=== PATIENT | female | born 1990 | race Hispanic/Latino ===

== ENCOUNTER 2017-06-10 12:38 | Emergency (ER) | payer OTHER ==
[2017-06-10 12:50] VITALS: BMI 43.2
[2017-06-10] MEDS ORDERED: Morphine 4 mg/ml ISec IVP STA (13:05)
[2017-06-10] MEDS ORDERED: Sodium Chloride 0.9% 1,000 ML IV STA (13:05)
[2017-06-10 13:26] LABS: BASO # 0.01 K/mm3 (0.0-2.0); BASO % 0.1 % (0.0-3.0); EOS # 0.4 (0.0-0.7); EOS % 2.7 % (1.5-5.0); GRAN # 12.08 (1.4-6.5); GRAN % 86.6 % (50.0-68.0); HEMOGLOBIN 14.3 g/dL (12.0-16.0); LYMPH # 0.6 (1.2-3.4); LYMPH % 4.4 % (22.0-35.0); MEAN CELL VOLUME 84.7 fl (80.0-105.0); MEAN CORPUSCULAR HGB CONC 33.1 g/dl (31.0-37.0); MEAN PLATELET VOLUME 10.5 fl (7.0-11.0); MONO # 0.9 (0.1-0.6); MONO % 6.2 % (1.0-6.0); PH,URINE 8.5 (4.7-8.0); PLATELET COUNT 242 10^3/uL (120.0-450.0); RED CELL DISTRIBUTION WIDTH 13.8 % (11.5-14.5); URINE BILIRUBIN NEGATIVE (NEGATIVE); URINE BLOOD SMALL (NEGATIVE); URINE GLUCOSE (UA) NEGATIVE (NEGATIVE); URINE LEUKOCYTE ESTERASE NEGATIVE Leu/uL (NEGATIVE); URINE NITRATE NEGATIVE (NEGATIVE); URINE PROTEIN 30 mg/dL (<30 mg/dL); URINE UROBILINOGEN 0.2 E.U./dL (<1 E.U./dL); WHITE BLOOD COUNT 13.9 10^3/ul (4.5-11.0)
[2017-06-10 13:29] LABS: URINE APPEARANCE CLEAR (CLEAR); URINE COLOR YELLOW (YELLOW)
[2017-06-10 13:36] LABS: ALB/GLOB RATIO 1.3 (1.1-1.8); ALBUMIN 4.5 g/dL (3.0-4.8); ALT/SGPT 41 U/L (7-56); AST/SGOT 27 U/L (14-36); BLOOD UREA NITROGEN 19 mg/dL (7-21); CALCIUM 9.9 mg/dL (8.4-10.5); GFR AFRICAN-AMERICAN > 60; GFR NON-AFRICAN AMERICAN > 60; LIPASE 90 U/L (23-300)
[2017-06-10 13:38] VITALS: RESP 18; TEMP 98.2
[2017-06-10] MEDS ORDERED: Iohexol 350 MG/100 ML VIAL ONE (13:42)
[2017-06-10 14:01] LABS: URINE BACTERIA FEW (NEG); URINE RBC 0 - 2 /hpf (0-2); URINE WBC 0 - 2 /hpf (0-6)
--- NOTE | 2017-06-10 14:47 | CT ---
PROCEDURE: CT Abdomen and Pelvis with contrast HISTORY: abd pain COMPARISON: None. TECHNIQUE: Contrast dose: 100 mL Omnipaque 350 Radiation dose: Total exam DLP = 1033.3 mGy-cm. This CT exam was performed using one or more of the following dose reduction techniques: Automated exposure control, adjustment of the mA and/or kV according to patient size, and/or use of iterative reconstruction technique. FINDINGS: LOWER THORAX: Unremarkable. LIVER: Unremarkable. No gross lesion or ductal dilatation. GALLBLADDER AND BILE DUCTS: Minimal cholelithiasis without gallbladder wall thickening or pericholecystic fluid. PANCREAS: Unremarkable. No gross lesion or ductal dilatation. SPLEEN: Unremarkable. ADRENALS: Unremarkable. No mass. KIDNEYS AND URETERS: Unremarkable. No hydronephrosis. No solid mass. VASCULATURE: Unremarkable. No aortic aneurysm. BOWEL: Unremarkable. No obstruction. No gross mural thickening. APPENDIX: Normal appendix. PERITONEUM: Small fat containing umbilical hernia. No free fluid. No free air. LYMPH NODES: Unremarkable. No enlarged lymph nodes. BLADDER: Unremarkable. REPRODUCTIVE: Malpositioned intrauterine device in the lower uterine segment/cervix. BONES: No acute fracture. OTHER FINDINGS: None. IMPRESSION: Malpositioned intrauterine device in the lower uterine segment/cervix. Minimal cholelithiasis without CT evidence of acute cholecystitis. Findings conveyed to Dr. Cross by Dr. Miranda at 2:44 pm on 06/10/2017.
[2017-06-10 15:28] LABS: EOSINOPHIL 2 % (0.0-3.0); LYMPHOCYTE 5 % (22.0-35.0); MONOCYTE 5 % (1.0-6.0)
[2017-06-10 15:29] LABS: NEUTROPHIL 88 % (50.0-70.0)
[2017-06-10 15:30] LABS: PLATELET ESTIMATE NORMAL (NORMAL)
--- NOTE | 2017-06-10 17:15 | RAD ---
HISTORY: Abdominal pain. COMPARISON: No prior. FINDINGS: LUNGS: No active pulmonary disease. PLEURA: No significant pleural effusion identified, no pneumothorax apparent. CARDIOVASCULAR: Normal. OSSEOUS STRUCTURES: No significant abnormalities. VISUALIZED UPPER ABDOMEN: Normal. OTHER FINDINGS: None. IMPRESSION: No active disease.
--- NOTE | 2017-06-10 18:58 | ED PDOC ---
Arrival/HPI - General Chief Complaint: GI Problem Time Seen by Provider: 06/10/17 13:05 Historian: Patient - History of Present Illness Narrative History of Present Illness (Text): 06/10/17 20:00 27-year-old female presents today with sudden onset of nausea and vomiting which started this morning. Patient then developed diarrhea and epigastric pain. She denies fevers or chills. Denies chest pain or shortness of breath. Patient describes a crampy gnawing constant pain to the right upper quadrant and epigastric region. Patient states she's been trying to eat and drink but just continues to vomit. Patient states she's had about 5 episodes of vomiting and about 7 episodes of diarrhea since this morning. Patient denies sick contacts at home. Denies recent travel. Patient states she takes Pepcid daily at home. Patient denies dizziness or weakness. Denies back pain. No medications have been taken for pain. No other complaints. Symptom Onset: Sudden Symptom Course: Worsening Quality: Cramping, Burning Severity Level: 10 Past Medical History - Provider Review Nursing Documentation Reviewed: Yes - Travel History Have you recently traveled outside [place] w/in the past 3 mons?: No - Infectious Disease Hx of Infectious Diseases: None - Cardiac Hx Cardiac Disorders: No - Pulmonary Hx Respiratory Disorders: Yes Hx Asthma: Yes (never been hospitalized) - Neurological Hx Neurological Disorder: Yes Hx Migraine: Yes - HEENT Hx HEENT Disorder: Yes Other/Comment: HX:astigmatism. HX:chronic sinus infection. HX: CHRONIC TONSILLITIS - Renal Hx Renal Disorder: No - Endocrine/Metabolic Hx Endocrine Disorders: No - Hematological/Oncological Hx Blood Disorders: No Hx Blood Transfusions: No - Integumentary Hx Dermatological Disorder: No - Musculoskeletal/Rheumatological Hx Musculoskeletal Disorders: Yes Hx Fractures: Yes (left wrist) - Gastrointestinal Hx Gastrointestinal Disorders: Yes Hx Gastritis: Yes Hx Gastroesophageal Reflux: Yes - Genitourinary/Gynecological Hx Genitourinary Disorders: No - Psychiatric Hx Psychophysiologic Disorder: Yes Hx Anxiety: Yes Hx Substance Use: No - Surgical History Other/Comment: HX: SEPTOPLASTY, ETHMOIDECTOMY, INFERIOR MIDDLE TURBINATE REDUCTION,RIGHT FRONTAL SINSUSTOMY, SPLENOIDECTOMY. - Anesthesia Hx Anesthesia: Yes Hx Anesthesia Reactions: Yes (nausea) Hx Malignant Hyperthermia: No Family/Social History - Physician Review Nursing Documentation Reviewed: Yes Family/Social History: Unknown Family HX Smoking Status: Never Smoked Hx Alcohol Use: No Hx Substance Use: No Allergies/Home Meds Allergies/Adverse Reactions: Allergies apple Allergy (Severe, Verified 04/08/16 10:41) ANAPHYLAXIS cashew nut Allergy (Severe, Verified 04/08/16 10:41) ANAPHYLAXIS pistachio nut Allergy (Severe, Verified 04/08/16 10:41) ANAPHYLAXIS omeprazole Allergy (Intermediate, Verified 04/08/16 10:42) RASH ranitidine Allergy (Intermediate, Verified 04/08/16 10:42) RASH cat dander Allergy (Intermediate, Uncoded 04/22/15 10:53) RASH grass Allergy (Intermediate, Uncoded 04/22/15 10:53) RASH mold Allergy (Intermediate, Uncoded 04/22/15 10:54) RASH ragweeds Allergy (Intermediate, Uncoded 04/22/15 10:54) RASH trees Allergy (Intermediate, Uncoded 04/22/15 10:54) RASH Allergic to birch, oak, white eliza Home Medications: Home Meds Medication Instructions Recorded Confirmed Cetirizine Hydrochloride [Zyrtec] 5 mg PO DAILY 04/08/15 04/08/16 Famotidine [Pepcid] 20 mg PO BID 04/08/15 04/20/16 Folic Acid 1 mg PO DAILY 04/08/15 04/20/16 Montelukast [Singulair] 10 mg PO DAILY 04/08/15 04/20/16 Ergocalciferol (Vitamin D2) 50,000 iu PO QWK 04/08/16 04/20/16 [Vitamin D2] Fluticasone Nasal [Flonase] 1 actuation NS DAILY 04/08/16 04/20/16 Vitamin B12 Injection 1,000 mcg IM 04/08/16 Albuterol HFA [Ventolin HFA 90 1 puff INH Q4 PRN 04/20/16 04/20/16 mcg/actuation (8 g)] Home Med 2 puff INH BID 04/20/16 04/20/16 Home Med 10 mg PO TID PRN 04/20/16 04/20/16 Magnesium Oxide [Mag-Ox] 1 tab PO BID 04/20/16 04/20/16 hydrOXYzine HCl [Atarax] 1 tab PO QID PRN 04/20/16 04/20/16 Review of Systems - Review of Systems Constitutional: absent: Fatigue, Fevers Respiratory: absent: SOB, Cough Cardiovascular: absent: Chest Pain, Palpitations Gastrointestinal: Abdominal Pain, Diarrhea, Nausea, Vomiting. absent: Constipation Genitourinary Female: absent: Dysuria, Frequency, Hematuria, Vaginal Bleeding, Vaginal Discharge Musculoskeletal: absent: Arthralgias, Back Pain, Neck Pain Skin: absent: Rash, Pruritis Neurological: absent: Headache, Dizziness Psychiatric: absent: Anxiety, Depression, Suicidal Ideation Physical Exam Vital Signs Reviewed: Yes Vital Signs Temp Pulse Resp BP Pulse Ox 06/10/17 18:58 88 18 112/70 98 06/10/17 17:51 96 H 18 108/62 100 06/10/17 15:40 101 H 18 129/71 100 06/10/17 12:38 98.2 F 89 18 119/69 Temperature: Afebrile Blood Pressure: Normal Pulse: Regular Respiratory Rate: Normal Appearance: Positive for: Well-Appearing, Non-Toxic, Uncomfortable Pain Distress: None Mental Status: Positive for: Alert and Oriented X 3 - Systems Exam Head: Present: Atraumatic Mouth: Present: Moist Mucous Membranes Neck: Present: Normal Range of Motion Respiratory/Chest: Present: Clear to Auscultation, Good Air Exchange. No: Respiratory Distress, Accessory Muscle Use Cardiovascular: Present: Regular Rate and Rhythm, Normal S1, S2. No: Murmurs Abdomen: Present: Tenderness (ruq and epigastric tenderness), Normal Bowel Sounds, Guarding. No: Distention, Peritoneal Signs, Rebound Back: Present: Normal Inspection. No: CVA Tenderness, Midline Tenderness, Paraspinal Tenderness Upper Extremity: Present: Normal ROM Lower Extremity: Present: Normal ROM Neurological: Present: GCS=15, Speech Normal Skin: Present: Warm, Dry, Normal Color. No: Rashes Psychiatric: Present: Alert, Oriented x 3 Medical Decision Making ED Course and Treatment: 06/10/17 18:58 Patient is nontoxic with stable vital signs presenting with severe abdominal pain, Nausea/vomiting/diarrhea. pt given morphine for pain; NS IV bolus given zofran given for nausea. CBC wbc:13.9 CMP glucose:137 Lipase 90 Urinalysis + blood cxr; wnl Patient reassessment: pt feeling much better after medications; vitals stable. waiting on CT results. CAT scan: FINDINGS: LOWER THORAX: Unremarkable. LIVER: Unremarkable. No gross lesion or ductal dilatation. GALLBLADDER AND BILE DUCTS: Minimal cholelithiasis without gallbladder wall thickening or pericholecystic fluid. PANCREAS: Unremarkable. No gross lesion or ductal dilatation. SPLEEN: Unremarkable. ADRENALS: Unremarkable. No mass. KIDNEYS AND URETERS: Unremarkable. No hydronephrosis. No solid mass. VASCULATURE: Unremarkable. No aortic aneurysm. BOWEL: Unremarkable. No obstruction. No gross mural thickening. APPENDIX: Normal appendix. PERITONEUM: Small fat containing umbilical hernia. No free fluid. No free air. LYMPH NODES: Unremarkable. No enlarged lymph nodes. BLADDER: Unremarkable. REPRODUCTIVE: Malpositioned intrauterine device in the lower uterine segment/cervix. BONES: No acute fracture. OTHER FINDINGS: None. IMPRESSION: Malpositioned intrauterine device in the lower uterine segment/cervix. Minimal cholelithiasis without CT evidence of acute cholecystitis. Discussed all results with patient in depth. advised patient of malpositioned IUD. Stressed importance of follow-up with the educational technology coordinator. Advised patient to use protection with sexual intercourse as the IUD may no longer be working appropriately. pt was seen and evaluated by dr. stack at bedside; bedside US of ruq performed by dr. stack at beside; + gallstone, no signs of cholecystitis. Due to the fact that the patient has an elevated white blood cell count and right upper quadrant tenderness with gallstones we have offered the patient admission to the hospital for further evaluation with a HIDA scan to exclude cholecystitis. We have advised the patient that although the CAT scan does not show evidence of cholecystitis, and the ultrasound also does not show evidence of cholecystitis we cannot rule out cholecystitis at this time without a HIDA scan. Patient was offered admission to the hospital for HIDA scan. She has refused admission to the hospital. Patient states she is feeling much better. She denies any abdominal pain at present time. Her vital signs are stable. Patient states she was able to eat crackers and drink water in the emergency room without nausea or vomiting or pain. Patient states she wants to go home and will return immediately if any concerning symptoms develop. Stressed the importance of immediate return if symptoms worsen persist or if new concerning symptoms develop. Stressed importance of follow-up with a educational technology coordinator. Stressed importance of follow-up with a GI doctor. Patient verbalizes understanding of discharge instructions and need for immediate followup. all aspects of this case were discussed the attending of record. Impression: abdominal pain, n/v/d, gallstones, malpositioned IUD Follow-up with a GI doctor within the next 2 days Follow-up with the primary care physician within the next 2 days Follow-up with the educational technology coordinator for urine malpositioned IUD. Return immediately if symptoms worsen or persist or if new symptoms develop: High fevers, abdominal pain, nausea vomiting, dizziness or weakness of any other concerning symptoms develop - Lab Interpretations Lab Results: 06/10/17 13:05 06/10/17 13:05 Lab Results 06/10/17 13:05: WBC 13.9 H, RBC 5.10, Hgb 14.3, Hct 43.2, MCV 84.7, MCH 28.0, MCHC 33.1, RDW 13.8, Plt Count 242, MPV 10.5, Gran % 86.6 H, Lymph % (Auto) 4.4 L, Gulf % (Auto) 6.2 H, Eos % (Auto) 2.7, Baso % (Auto) 0.1, Gran # 12.08 H, Lymph # (Auto) 0.6 L, Gulf # (Auto) 0.9 H, Eos # (Auto) 0.4, Baso # (Auto) 0.01 , Neutrophils % (Manual) 88 H, Lymphocytes % (Manual) 5 L, Monocytes % (Manual) 5, Eosinophils % (Manual) 2, Platelet Evaluation Normal 06/10/17 13:05: Sodium 141, Potassium 3.7, Chloride 104, Carbon Dioxide 25, Anion Gap 15, BUN 19, Creatinine 0.7, Est GFR ( Amer) > 60, Est GFR (Non- Af Amer) > 60, Random Glucose 137 H, Calcium 9.9, Total Bilirubin 0.6, AST 27, ALT 41, Alkaline Phosphatase 78, Total Protein 7.9, Albumin 4.5, Globulin 3.4, Albumin/Globulin Ratio 1.3, Lipase 90 06/10/17 13:05: Urine Color Yellow, Urine Appearance Clear, Urine pH 8.5, Ur Specific Ferriday 1.020, Urine Protein 30 H, Urine Glucose (UA) Negative, Urine Ketones Negative, Urine Blood Small H, Urine Nitrate Negative, Urine Bilirubin Negative, Urine Urobilinogen 0.2, Ur Leukocyte Esterase Negative, Urine RBC 0 - 2, Urine WBC 0 - 2, Ur Epithelial Cells 3 - 4, Urine Bacteria Few - RAD Interpretation Radiology Orders: 06/10/17 13:07 CHEST PORTABLE [RAD] Stat 06/10/17 13:08 ABD & PELVIS IV CONTRAST ONLY [CT] Stat - Medication Orders Current Medication Orders: Discontinued Medications Sodium Chloride (Sodium Chloride 0.9%) 1,000 mls @ 999 mls/hr IV .Q1H1M STA Stop: 06/10/17 14:05 Last Admin: 06/10/17 13:15 Dose: 999 mls/hr eMAR Start Stop Document 06/10/17 13:15 GMD (Rec: 06/10/17 13:15 GMD [facility]) Intravenous Solution Start Date 06/10/17 Start Time 13:15 End Date 06/10/17 End time 14:16 Total Infusion Time 61 Morphine Sulfate (Morphine) 4 mg IVP STAT STA Stop: 06/10/17 13:06 Last Admin: 06/10/17 13:16 Dose: 4 mg MAR Pain Assessment Document 06/10/17 13:16 GMD (Rec: 06/10/17 13:16 GMD [facility]) Pain Reassessment Is this a pain reassessment? No Sleep Is patient sleeping during reassessment? No Presence of Pain Presence of Pain Yes IVP Administration Document 06/10/17 13:16 GMD (Rec: 06/10/17 13:16 GMD [facility]) Charges for Administration # of IVP Administrations 1 Ondansetron HCl (Zofran Inj) 4 mg IVP STAT STA Stop: 06/10/17 13:06 Last Admin: 06/10/17 13:16 Dose: 4 mg IVP Administration Document 06/10/17 13:16 GMD (Rec: 06/10/17 13:16 GMD [facility]) Charges for Administration # of IVP Administrations 1 Disposition/Present on Arrival - Present on Arrival Any Indicators Present on Arrival: No History of DVT/PE: No History of Uncontrolled Diabetes: No Urinary Catheter: No History of Decub. Ulcer: No History Surgical Site Infection Following: None - Disposition Have Diagnosis and Disposition been Completed?: Yes Diagnosis: Abdominal pain, Leukocytosis, Nausea & vomiting, Malpositioned IUD, Gallstones Disposition: HOME/ ROUTINE Disposition Time: 18:57 Patient Plan: Discharge Condition: GOOD Discharge Instructions (ExitCare): Gallstones (ED), Acute Nausea and Vomiting ( ED), Acute Abdominal Pain (ED) Additional Instructions: Follow-up with a GI doctor within the next 2 days Follow-up with the primary care physician within the next 2 days Follow-up with the educational technology coordinator for urine malpositioned IUD. Return immediately if symptoms worsen or persist or if new symptoms develop: High fevers, abdominal pain, nausea vomiting, dizziness or weakness of any other concerning symptoms develop Referrals: Roro Tran MD [Primary Care Provider] - Follow up with primary Chai Mendez DO [Staff Provider] - Follow up with primary Gomez Miguel DO [Staff Provider] - Follow up with primary Forms: [employer] (Yoruba), WORK NOTE
[2017-06-10 18:59] VITALS: BP 112/70; PULSE 88; O2SAT 98
== END 2017-06-10 19:04 | disposition home or self-care (01) ==
LOC: ED 12:38
DX: K80.80 Other cholelithiasis without obstruction (principal); D72.829 Elevated white blood cell count, unspecified; R11.2 Nausea with vomiting, unspecified; R10.9 Unspecified abdominal pain; Z30.431 Encounter for routine checking of intrauterine contraceptive device
CPT/HCPCS: 71045; 74177; 80053; 81001; 83690; 85025; 96361; 96374; 96375; 99285; J2270; J2405; J7040; Q9967